=== PATIENT | male | born 1960 | race Caucasian/White ===

== ENCOUNTER → 2017-01-03 | Outpatient (CLI) | payer BC ==
[~2017-01-03] MED LIST: CMD5 PO; FEXO1TAB58 PO
== END | disposition home or self-care (01) ==
LOC: C.LABSPEC 14:34
PROVIDERS: ATTEND Internal Medicine
DX: Z12.11 Encounter for screening for malignant neoplasm of colon (principal)

== ENCOUNTER → 2017-05-29 | Outpatient (CLI) | payer BC ==
--- NOTE | 2017-05-29 12:16 | DIAGNOSTIC IMAGING REPORT ---
ADDENDUM ADDENDUM: A 06/11/2014 examination is used for comparison. Deep venous thrombosis is seen within the left popliteal vein on the prior examination, and this is similar appearance to today's examination. The chronicity of today's thrombus remains indeterminant. Electronically signed by: Diogo Hernandez M.D. 05/29/2017 12:34 PM Dictated Date/Time: 05/29/2017 12:33 PM ORIGINAL REPORT ULTRASOUND LEFT LOWER EXTREMITY VENOUS CLINICAL HISTORY: Left leg pain. COMPARISON STUDY: No priors. TECHNIQUE: Real-time, grayscale, and color Doppler sonography of the deep veins of the left lower extremity was performed from the inguinal crease to the calf. Compression and augmentation were utilized. FINDINGS: There is nearly occlusive deep venous thrombosis identified in the left popliteal vein. This extends into the calf within one of the peroneal veins. The remaining calf veins are patent. The common femoral and superficial femoral veins are patent and normally compressible. The greater saphenous vein and the profunda femoris vein at the junction with the common femoral vein are clear. IMPRESSION: There is nearly occlusive deep venous thrombosis identified in the left popliteal vein and extending into the calf. Electronically signed by: Diogo Hernandez M.D. 05/29/2017 12:15 PM Dictated Date/Time: 05/29/2017 12:14 PM
== END | disposition home or self-care (01) ==
LOC: C.ULTRBC 11:23
PROVIDERS: ATTEND Internal Medicine
DX: M79.605 Pain in left leg (principal); Z86.718 Personal history of other venous thrombosis and embolism

== ENCOUNTER → 2017-06-20 | Outpatient (CLI) | payer BC ==
[2017-06-20 20:15] LABS: LYME DISEASE AB IGG NEG (NEG); LYME DISEASE AB IGM NEG (NEG)
== END | disposition home or self-care (01) ==
LOC: C.LABSPEC 17:48
PROVIDERS: ATTEND Internal Medicine
DX: R21 Rash and other nonspecific skin eruption (principal)

== ENCOUNTER → 2017-07-06 | Outpatient (CLI) | payer BC | END | disposition home or self-care (01) | LOC: C.LABSPEC 14:58 | PROVIDERS: ATTEND Internal Medicine | DX: Z12.11 Encounter for screening for malignant neoplasm of colon (principal) ==